=== PATIENT | male | born 1950 | race Caucasian/White ===

== ENCOUNTER 2019-10-04 15:00 | Outpatient (CLI) | payer MEDICARE ==
--- NOTE | 2019-10-04 16:01 | RAD ---
FOUR VIEWS OF THE CERVICAL SPINE: COMPARISON: None. HISTORY: Right neck and shoulder pain. FINDINGS: Four views of the cervical spine show normal height of the vertebral bodies without fracture or sublu xation. There is grade I anterolisthesis of C4 on C5. This alignment is unchanged with flexion and extension. There is intervertebral disk space narrowing at C5-6 and C6-7. No prevertebral soft tiss ue swelling is seen. IMPRESSION: Degenerative changes of the cervical spine with unchanged alignment with bending. POS: [facility]
--- NOTE | 2019-10-04 16:36 | MRI ---
MR CERVICAL SPINE WITHOUT CONTRAST: 10/04/19 INDICATION: History of right shoulder and neck pain and tumor removal. COMPARISON: Radiographs of the cervical spine dated 10/04/19. FINDINGS: The visualized aspects of the posterior fossa appear within normal limits. There is mucosal thickenin g within the sphenoid sinus. There is slight anterior translation of C4 on C5 and C7 on T1. There is prominent Modic end plate degenerative changes at C6-7. At C2-C3, there is moderate bilateral facet joint degenerative change but no appreciable central sandy l or neural foraminal narrowing. At C3-4, there is a broad based bulge with uncovertebral hypertrophy inducing moderate to severe righ t neural foraminal narrowing. At C4-5, there is uncovertebral hypertrophy and facet joint degenerative change inducing mild right n eural foraminal narrowing. At C5-6, there is a broad based bulge and uncovertebral hypertrophy and facet joint degenerative emerson ge inducing moderate to severe right and moderate left neural foraminal narrowing. There is mild cent ral canal narrowing without cord compression. At C6-7, there is a disc osteophyte complex with uncovertebral hypertrophy, facet joint degenerative change inducing moderate bilateral neural foraminal narrowing and mild to moderate central canal narr owing without definite cord impingement. At C7-T1, there is no appreciable central canal or neural foraminal narrowing. There is very slight a nterior translation of C7 on T1. There is prominent facet joint degenerative change bilaterally. IMPRESSION: 1. Moderate multilevel cervical spondylosis. Mild to moderate central canal narrowing at C6-7 du e to a broad based disc osteophyte complex with moderate bilateral neural foraminal narrowing at C6-7 . 2. Mild central canal narrowing with moderate to severe right and moderate left neural foraminal narrowing at C5-6. 3. Mild right neural foraminal narrowing at C4-5. 4. Moderate to severe right neural foraminal narrowing at C3-4. 5. Prominent Modic end plate degenerative change at C6-7. POS: [facility]
== END 2019-10-04 15:01 | disposition home or self-care (01) ==
LOC: TBSIIMAG 15:00
PROVIDERS: ATTEND Neurological Surgery
DX: M47.22 Other spondylosis with radiculopathy, cervical region (principal); M54.2 Cervicalgia; M48.02 Spinal stenosis, cervical region; M25.78 Osteophyte, vertebrae
CPT/HCPCS: 72050; 72141